=== PATIENT | female | born 1945 | race Caucasian/White ===

== ENCOUNTER → 2018-02-14 05:32 | Outpatient (REF) | payer OTHER, SELFPAY ==
[2018-02-14 09:22] LABS: Microscopic, Urine URINE MICROSCOPIC (MICROSCOPIC)
[2018-02-14 09:47] LABS: Appearance,Urine CLOUDY (Clear); Bilirubin,Urine Negative (Negative); Blood, Urine 3+ (Negative); Color,Urine YELLOW (Yellow); Glucose,Urine (UA) Negative (Negative); Ketones,Urine Negative (Negative); Leukocyte Esterase,Urine 3+ (Negative); Nitrate,Urine POSITIVE (Negative); PH,Urine 6.5 (5.0-8.5); Protein,Urine 2+ (Negative); Specific Gravity, Urine 1.025 (1.005-1.030); Urobilinogen,Urine 0.2 EU/dl (0.2)
[2018-02-14 11:01] LABS: Bacteria,Urine 4+ /lpf; Squamous Epithelial Cell,Urine Occasional #/hpf (0-5); WBC,Urine TNTC #/hpf (0-3)
== END ==
LOC: LAB 05:32
PROVIDERS: Visit Provider Internal Medicine
DX: R10.2 Pelvic and perineal pain (principal); R36.9 Urethral discharge, unspecified
CPT/HCPCS: 81001; 87086; 87088; 87186

== ENCOUNTER → 2018-06-09 14:42 | Outpatient (CLI) | payer MEDICARE, MEDICAID, SELFPAY ==
--- NOTE | 2018-06-09 14:47 | CT_ITS ---
CT abdomen pelvis wo con CLINICAL INDICATION: ITS.REASON: CHRONIC CYSTITIS ORDERING PHYSICIAN: Nasir Valdez MD PATIENT AGE: 72 years COMPARISON: None TECHNIQUE: Axial images obtained with sagittal and coronal reformats. All CT scans at the facility use one or more dose reduction, viz: automated exposure control; ma/kV adjustment per patient size (including targeted exams where dose is matched to indication; i.e. head); or iterative reconstruction technique. PROCEDURE: Oral Contrast: None IV Contrast: None . FINDINGS: There are mild fibrotic changes in the lingula. There has been prior cholecystectomy. No obvious ductal dilatation. No focal liver lesion. The spleen, adrenal glands, and pancreas have an unremarkable unenhanced CT appearance. There is an 11 x 8 mm stone in the lower pole the right kidney. A 3 mm stone is present in the upper pole of the left kidney. There are 2 calcific densities in the left renal pelvis and may represent small stones at 3 mm each versus vascular calcification. No ureteral calculi. No hydronephrosis. There is mild ectasia of the infrarenal abdominal aorta measuring up to 2.5 cm in transverse dimension. There is a suprapubic catheter present. Several coarse calcific densities are present around the urinary bladder and there may be a small stone in the lower right aspect the urinary bladder at 7 mm. There are multiple unopacified bowel loops present within the abdomen/pelvis which could obscure or mimic pathology. If symptoms persists, consider repeating exam with IV and oral contrast administration. No acute bony anomalies. There is mild stranding in the subcutaneous fat nonspecific IMPRESSION: 1. Bilateral nephrolithiasis. No hydronephrosis or hydroureters. 2. Suprapubic catheter present with possible small stone in the right aspect of the urinary bladder with multiple phleboliths around the urinary bladder. 3. Constipation. 4. There are multiple unopacified bowel loops present within the abdomen/pelvis which could obscure or mimic pathology. If symptoms persists, consider repeating exam with IV and oral contrast administration 5. Mild dilatation of the infrarenal abdominal aorta at 2.7 cm
== END ==
PROVIDERS: PCP Emergency Medicine; Visit Provider Urology
DX: N30.10 Interstitial cystitis (chronic) without hematuria (principal)
CPT/HCPCS: 74176

== ENCOUNTER → 2018-08-11 18:45 | Outpatient (REF) | payer MEDICARE, MEDICAID, SELFPAY | LOC: LAB 18:45 | PROVIDERS: Visit Provider Urology | DX: N30.20 Other chronic cystitis without hematuria (principal); N31.9 Neuromuscular dysfunction of bladder, unspecified | CPT/HCPCS: 87086; 87088; 87186 ==

== ENCOUNTER → 2018-09-23 10:05 | Outpatient (CLI) | payer MEDICARE, MEDICAID, SELFPAY | PROVIDERS: PCP Emergency Medicine; Visit Provider Urology | DX: N39.0 Urinary tract infection, site not specified (principal) | CPT/HCPCS: 87086; 87088; 87186 ==

== ENCOUNTER 2018-10-26 09:30 | Inpatient (IN) ==
--- NOTE | 2018-10-26 09:56 | Emergency Department Note ---
ED Disposition Clinical Impression: Hyperglycemia, Renal insufficiency Fever Qualifiers: Fever type: due to other condition Qualified Code(s): R50.81 - Fever presenting with conditions classified elsewhere UTI (urinary tract infection) Qualifiers: Urinary tract infection type: site unspecified Hematuria presence: without hematuria Qualified Code(s): N39.0 - Urinary tract infection, site not specified Disposition: Admitted as Observation Condition on Discharge: Fair Instructions: DI for Fever (Symptom) -- Adult Additional Instructions: DI for UTI DI for Hyperglycemia DI for renal insufficiency Referrals: Reza Rojas MD [Primary Care Provider] - Time of Disposition: 10:47 (admit) - Critical Care Critical Care Time: No Attestation: On , the high probability of a clinically significant, sudden or life threatening deterioration of the following system(s) required my full and direct attention, intervention and personal management. The time I documented below is in addition to time spent performing reported procedures but includes the following listed in this critical care notation. Medical Decision Making - Medical Records Medical records reviewed: Yes: I reviewed the patient's medical records. - Abelardo Inquiry Pt receiving controlled substance: No Abelardo was queried for this patient: No Vital Signs: 10/26/18 09:35 10/26/18 10:07 10/26/18 10:38 Temperature 102.1 F H 100.9 F H Temperature Source Temporal Artery Scan Temporal Artery Scan Pulse Rate [Right Brachial] 87 129 H Respiratory Rate 20 Blood Pressure [Right Arm] 123/64 106/68 L Blood Pressure Mean [Right Arm] 83 80 Blood Pressure Source [Right Arm] Automatic Cuff Automatic Cuff Blood Pressure Position [Right Arm] Sitting Sitting 02 Sat by Pulse Oximetry 90 L 94 L Oxygen Delivery Method Room Air Non-Rebreather Oxygen Flow Rate (LPM) 15 - Lab Data Lab results reviewed: Yes: I reviewed the patient's lab results. Lab Results 10/26/18 09:50: Urine Color Brown, Urine Appearance Turbid, Urine pH 6.5, Ur Specific [place] 1.025, Urine Protein 2+, Urine Glucose (UA) Negative, Urine Ketones Trace, Urine Blood 3+, Urine Nitrate Positive, Urine Bilirubin Negative, Urine Urobilinogen 1.0, Ur Leukocyte Esterase 2+ A, Urine RBC Tntc, Urine WBC Tntc, Ur Squamous Epith Cells 5-10, Urine Bacteria 4+ 10/26/18 09:50: WBC 10.3, RBC 4.14 L, Hgb 11.2 L, Hct 35.4 L, MCV 85.6, MCH 27.0, MCHC 31.5 L, RDW 15.5, Plt Count 157, MPV 6.9 L, Neut % (Auto) 89.2 H, Lymph % (Auto) 6.2 L, [place] % (Auto) 4.2, Eos % (Auto) 0.2, Baso % (Auto) 0.3, Neut # (Auto) 9.2 H, Lymph # (Auto) 0.6 L, [place] # (Auto) 0.4, Eos # (Auto) 0.0, Baso # (Auto) 0.0, Total Counted 100, Neutrophils % (Manual) 90 H, Band Neutrophils % 1.0, Lymphocytes % (Manual) 6 L, Monocytes % (Manual) 3, Platelet Estimate Normal, Hypochromasia 1+ 10/26/18 09:50: Sodium 138, Potassium 3.9, Chloride 103, Carbon Dioxide 24, Anion Gap 14.9, BUN 26 H, Creatinine 1.16 H, Estimated Creat Clear 56, Estimated GFR 46 L, Est GFR ( Amer) 55 L, Glucose 125 H, Calcium 8.6, Troponin I < 0.02 10/26/18 09:50: Lactate 1.7 10/26/18 10:00: Influenza Type A Ag Negative, Influenza Type B Ag Negative Result diagrams: 10/26/18 09:50 10/26/18 09:50 Orders (Tests/Meds): ED MEDICATIONS Generic Name Dose Route Start Last Admin Trade Name Freq PRN Reason Stop Dose Admin Levofloxacin/Dextrose 500 mg in 100 mls @ 100 mls/hr 10/26/18 10:39 Levaquin 500mg/100ml Premix IV 10/26/18 11:38 PREOP ONE Protocol Discontinued Medications Generic Name Dose Route Start Last Admin Trade Name Freq PRN Reason Stop Dose Admin Acetaminophen 650 mg 10/26/18 09:46 10/26/18 10:10 Tylenol Elixir 325mg/10.15ml Udc PO 10/26/18 09:47 650 mg ONCE ONE Administration Sodium Chloride 1,000 mls @ 999 mls/hr 10/26/18 09:45 10/26/18 10:10 Sod Chlor 0.9% 1000ml Bag IV 10/26/18 10:45 999 mls/hr .Q1H1M NEELIMA Administration ORDERS Category Date Time Status Urinalysis and Microscopic Stat Lab 10/26/18 09:50 Ordered Blood Culture Stat Micro 10/26/18 09:50 Ordered Urine Culture Stat Micro 10/26/18 09:50 Received 12-lead EKG Request [ECG Request by /Vilma] Stat Y 10/26/18 09:47 Ordered - Radiology Data #1 Image(s): Chest Image Reviewed: Yes I reviewed the patient's radiology results, Yes I have reviewed radiologist's interpretation Preliminary Findings: Normal/NAD - ECG Data Tracing #1 I reviewed this ECG and interpreted as documented below: NSR,arrythmia,PVCs,Non spescific STT changes Normal Sinus Rhythm: Yes Ischemic changes: non-specific ST-T wave changes ECG compared to prior tracings: there are no prior tracings available for comparison Fever HPI - General Chief Complaint: Fever Stated Complaint: FEVER Time Seen by Provider: 10/26/18 09:53 Mode of Arrival: EMS Source of Information: EMS Limitations: No Limitations Description of Symptoms (Recalled from ER Triage Doc. by RN): C/O FEVER, ALTERED MENTAL STATUS AND HYPOXIA - History of Present Illness MD complaint: fever, malaise Onset (ago): day(s) (today at detention) Temperature Source: oral Associated symptoms: denies other symptoms, other (recent recent UTI) Relieving factors: acetaminophen Exacerbating factors: nothing Treatments prior to arrival fever: acetaminophen - Related Data Home Medications Medication Instructions Recorded Confirmed acetaminophen 500 mg tablet 500 mg PO Q6H PRN 05/12/18 10/26/18 aluminum hydrox-magnesium carb 95 30 ml PO TID PRN ml 05/12/18 10/26/18 mg-358 mg/15 mL oral suspension atorvastatin 40 mg tablet 40 mg PO QHS tab 05/12/18 10/26/18 bisacodyl 10 mg rectal suppository 10 mg MS DAILY PRN each 05/12/18 10/26/18 docusate sodium 250 mg capsule 250 mg PO DAILY PRN cap 05/12/18 10/26/18 hydrocodone 7.5 mg-acetaminophen 1 tab PO Q4H PRN 05/12/18 10/26/18 325 mg tablet ipratropium-albuterol 0.5 mg-3 3 ml INHALATION Q4H PRN ml 05/12/18 10/26/18 mg(2.5 mg base)/3 mL nebulization soln lactulose 10 gram/15 mL oral 20 g PO DAILY PRN ml 05/12/18 10/26/18 solution multivitamin with minerals capsule 1 cap PO DAILY cap 05/12/18 10/26/18 rivaroxaban 20 mg tablet 20 mg PO DAILY tab 05/12/18 10/26/18 mirtazapine 30 mg tablet 15 mg PO QHS tab 06/15/18 10/26/18 Ascorbic Acid [Vitamin C] 1,000 mg PO DAILY 10/26/18 10/26/18 Cranberry 400 mg PO DAILY 10/26/18 10/26/18 Ondansetron [Zofran 4mg ODT] 4 mg PO Q4HP PRN 10/26/18 10/26/18 Propylene Glycol [Systane Complete] 1 drop OU TID 10/26/18 10/26/18 Allergies Allergy/AdvReac Type Severity Reaction Status Date / Time Sulfa (Sulfonamide Allergy Unknown Verified 09/22/18 13:02 Antibiotics) [facility] History I have reviewed the patient's past medical history: Yes Medical History: Reports:: Congestive Heart Failure, Depression, Hyperlipidemia, Peripheral Vascular Disease Comment: Lymphedema Other Surgeries: Yes: Cholecystectomy - Social History Smoking Status: Unknown if ever smoked Alcohol Intake: never - Psychiatric History Expresses thoughts of harming self/others: None Suicide Plan Description: No Plan Pschychiatric History:: Reports:: Depression Family Hx:: Coronary Artery Disease, Cancer ROS Obtained: Yes All systems reviewed & no additional complaints - Constitutional Constitutional: Reports system reviewed and no additional complaints, except as docu, Denies chills, Reports fever(s) - ENT Ears, Nose, Mouth, and Throat: Reports system reviewed and no additional complaints, except as docu, Denies epistaxis, Denies facial pain, Denies nasal congestion, Denies sore throat - Cardiovascular Cardiovascular: Reports system reviewed and no additional complaints, except as docu, Denies chest pain, Denies dyspnea - Respiratory Respiratory: Yes system reviewed and no additional complaints, except as docu, No cough, No dyspnea - Gastrointestinal Gastrointestingal: Reports: system reviewed and no additional complaints, except as docu. Denies: abdominal pain, constipation, diarrhea, nausea, vomiting - Genitourinary Male Genitourinary: Reports system reviewed and no additional complaints, except as docu, Denies urinary frequency, Denies urinary hesitancy, Denies urinary urgency - Integumentary/Breasts Skin/Breast: Reports system reviewed and no additional complaints, except as docu, Denies change in skin color, Denies redness, Denies boil, Denies unusual bruising, Denies wounds - Neurologic Neurologic: Reports system reviewed and no additional complaints, except as docu, Denies confusion, Denies dizziness, Denies headache(s) Physical Exam - General General appearance: alert, in no apparent distress - Head Head exam: atraumatic, normocephalic, normal inspection - ENT ENT exam: Present: normal exam, normal oropharynx, mucous membranes moist, normal external ear exam - Neck Neck exam: Present: normal inspection, full ROM, trachea midline. Absent: meningismus, lymphadenopathy - Chest Chest inspection: Present: normal inspection, symmetric chest wall rise. Absent: tenderness - Respiratory Respiratory exam: Present: normal lung sounds bilaterally. Absent: respiratory distress - Cardiovascular Cardiovascular exam: Present: regular rate, normal rhythm. Absent: JVD - Abdominal Exam Abdominal exam: Present: soft, normal bowel sounds. Absent: distention, tenderness, guarding - Extremities Exam Extremities exam: Present: normal inspection, full ROM, normal capillary refill. Absent: calf tenderness - Back Exam Back exam: Present: normal inspection. Absent: tenderness - Neurological Exam Neurological exam: Present: alert, oriented X3 - Psychiatric Psychiatric exam: Present: normal affect, normal mood - Skin Skin exam: Present: warm, dry, intact, normal color - Lymphatic Lymphatic Findings: no adenopathy
[2018-10-26 10:03] LABS: Microscopic, Urine URINE MICROSCOPIC (MICROSCOPIC)
[2018-10-26 10:06] LABS: Appearance,Urine TURBID (Clear); Blood, Urine 3+ (Negative); Color,Urine BROWN (Yellow); Glucose,Urine (UA) Negative (Negative); Ketones,Urine TRACE (Negative); Leukocyte Esterase,Urine 2+ (Negative); PH,Urine 6.5 (5.0-8.5); Protein,Urine 2+ (Negative); Specific Gravity, Urine 1.025 (1.005-1.030)
[2018-10-26 10:07] LABS: Bilirubin,Urine Negative (Negative)
[2018-10-26 10:08] LABS: Basophils % 0.3 % (0.1-2.0); Eosinophils % 0.2 % (0.1-12.0); Hematocrit 35.4 % (37.0-47.0); Hemoglobin 11.2 g/dL (12.2-16.2); Lymphocytes # 0.6 K/mm3 (0.7-4.5); Lymphocytes % 6.2 % (10-50); Mean Corpuscular HGB Conc 31.5 g/dL (31.8-35.4); Mean Corpuscular Volume 85.6 fl (81-99); Mean Platelet Volume 6.9 fl (7.4-10.4); Monocytes # 0.4 K/mm3 (0.1-1.0); Monocytes % 4.2 % (1.7-9.3); Neutrophils # 9.2 K/mm3 (1.8-7.8); Neutrophils % 89.2 % (37.0-80.0); Platelet Count 157 K/mm3 (142-424); Red Blood Count 4.14 M/mm3 (4.20-5.40); Red Cell Distribution Width 15.5 % (11.5-17.5); White Blood Count 10.3 K/mm3 (4.8-10.8)
[2018-10-26 10:21] LABS: Bacteria,Urine 4+ /lpf; RBC,Urine TNTC #/hpf (0-3); WBC,Urine TNTC #/hpf (0-3)
[2018-10-26 10:26] LABS: Anion Gap 14.9 mEq/L (5-15); Blood Urea Nitrogen 26 mg/dL (7-18); Calcium 8.6 mg/dL (8.5-10.1); Carbon Dioxide 24 mmol/L (21.0-32.0); Chloride 103 mmol/L (98-107); Glucose 125 mg/dL (74-106); Potassium 3.9 mmoL/L (3.5-5.1); Sodium 138 mmol/L (136-145)
[2018-10-26 10:33] LABS: Hypochromasia 1+; Lymphocytes % 6 % (10-50); Monocytes % 3 % (2-9); Neutrophils % 90 % (42-76); Total Cells Counted 100
--- NOTE | 2018-10-26 15:20 | Pharmacy Consult Notes ---
[facility] Pharmacy VTE Monitoring - Patient Demographics Admission date: 10/26/18 Report Date: 10/26/18 Time: 15:20 Allergies/Adverse Reactions: Patient Allergies Sulfa (Sulfonamide Antibiotics) Allergy (Unknown, Verified 09/22/18 13:02) Height: 1.65 m Weight: 89.471 kg Patient Problems: Current Active Problems Fever (Acute) UTI (urinary tract infection) (Acute) Hyperglycemia (Acute) Renal insufficiency (Acute) - VTE Risk Labs: VTE Related Lab Results Hgb 11.2 g/dL (12.2-16.2) L 10/26/18 09:50 Hct 35.4 % (37.0-47.0) L 10/26/18 09:50 Plt Count 157 K/mm3 (142-424) 10/26/18 09:50 BUN 26 mg/dL (7-18) H 10/26/18 09:50 Creatinine 1.16 mg/dL (0.55-1.02) H 10/26/18 09:50 Estimated Creat Clear 56 mL/min (50-200) 10/26/18 09:50 Was VTE Risk Assessment Performed: Yes VTE Score: 5 VTE Risk Level: Low Risk Clinical Trial Participant: No - Prophylaxis VTE Prophylaxis Ordered?: Yes Types of VTE Prophylaxis: TEDS Knee High Location of Applied Device: Refused
--- NOTE | 2018-10-26 20:23 | History & Physical Report ---
*Admission Date: 10/26/18 *Chief complaint: fever *History of present illness: this elderly wf was seen in the ed -O FEVER, ALTERED MENTAL STATUS AND HYPOXIA pt was at [facility] and had dec loc and had recent uti - e coli - no vomiting - pt with not feeling well [facility] History I have reviewed the patient's past medical history: Yes Medical History: Reports:: Congestive Heart Failure, Depression, Hyperlipidemia, Peripheral Vascular Disease Other Surgeries: Yes: Cholecystectomy - *Social History Smoking Status: Unknown if ever smoked Alcohol Intake: never Occupational Status: disabled Housing: prison Household Members: other - Psychiatric History Expresses thoughts of harming self/others: None Suicide Plan Description: No Plan Pschychiatric History:: Reports:: Depression *Family Hx:: Coronary Artery Disease, Cancer Review of Systems - Review of Systems Review of systems:: pertinent systems reviewed and negative unless documented below - Constitutional Denies fever(s) - Eyes Denies change in vision - ENT Denies sore throat - *Cardiovascular Denies chest pain - *Respiratory Denies cough - *Gastrointestinal Denies nausea, Denies vomiting - *Genitourinary Denies blood in urine - *Musculoskeletal Denies joint pain, Denies neck pain - Integumentary/Breasts Denies rash - *Neurologic Denies confusion, Denies dizziness, Denies headache(s) - Psychiatric Denies anxiety Meds Home Medications Medication Instructions Recorded Confirmed Type acetaminophen 500 mg tablet 500 mg PO Q6H PRN 05/12/18 10/26/18 History aluminum hydrox-magnesium carb 95 30 ml PO TID PRN ml 05/12/18 10/26/18 History mg-358 mg/15 mL oral suspension atorvastatin 40 mg tablet 40 mg PO HS tab 05/12/18 10/26/18 History bisacodyl 10 mg rectal suppository 10 mg ID DAILY PRN each 05/12/18 10/26/18 History hydrocodone 7.5 mg-acetaminophen 1 tab PO Q4H 05/12/18 10/26/18 History 325 mg tablet lactulose 10 gram/15 mL oral 20 g PO DAILY PRN ml 05/12/18 10/26/18 History solution multivitamin with minerals capsule 1 cap PO DAILY cap 05/12/18 10/26/18 History rivaroxaban 20 mg tablet 20 mg PO 1700 tab 05/12/18 10/26/18 History mirtazapine 30 mg tablet 15 mg PO HS tab 06/15/18 10/26/18 History Ascorbic Acid [Vitamin C] 1,000 mg PO DAILY 10/26/18 10/26/18 History Cranberry 400 mg PO DAILY 10/26/18 10/26/18 History Ipratropium/Albuterol Sulfate 3 ml IH Q4HP PRN 10/26/18 10/26/18 History [Duoneb 3mL neb] Ondansetron [Zofran 4mg ODT] 4 mg PO Q4HP PRN 10/26/18 10/26/18 History Propylene Glycol [Systane Complete] 1 drop OU TID 10/26/18 10/26/18 History Sennosides/Docusate Sodium 2 each PO BID 10/26/18 10/26/18 History [Senna-Docusate Sodium Tablet] Allergies Allergy/AdvReac Type Severity Reaction Status Date / Time Sulfa (Sulfonamide Allergy Unknown Verified 09/22/18 13:02 Antibiotics) Exam Vital signs and Labs for Last 24 Hours: Temp Pulse Resp BP Pulse Ox 99.4 F 98 H 20 158/75 H 93 L 10/26/18 20:00 10/26/18 20:00 10/26/18 20:00 10/26/18 20:00 10/26/18 20:00 Laboratory Results - last 24 hr 10/26/18 09:50: Urine Color Brown, Urine Appearance Turbid, Urine pH 6.5, Ur Specific [place] 1.025, Urine Protein 2+, Urine Glucose (UA) Negative, Urine Ketones Trace, Urine Blood 3+, Urine Nitrate Positive, Urine Bilirubin Negative, Urine Urobilinogen 1.0, Ur Leukocyte Esterase 2+ A, Urine RBC Tntc, Urine WBC Tntc, Ur Squamous Epith Cells 5-10, Urine Bacteria 4+ 10/26/18 09:50: WBC 10.3, RBC 4.14 L, Hgb 11.2 L, Hct 35.4 L, MCV 85.6, MCH 27.0, MCHC 31.5 L, RDW 15.5, Plt Count 157, MPV 6.9 L, Neut % (Auto) 89.2 H, Lymph % (Auto) 6.2 L, [place] % (Auto) 4.2, Eos % (Auto) 0.2, Baso % (Auto) 0.3, Neut # (Auto) 9.2 H, Lymph # (Auto) 0.6 L, [place] # (Auto) 0.4, Eos # (Auto) 0.0, Baso # (Auto) 0.0, Total Counted 100, Neutrophils % (Manual) 90 H, Band Neutrophils % 1.0, Lymphocytes % (Manual) 6 L, Monocytes % (Manual) 3, Platelet Estimate Normal, Hypochromasia 1+ 10/26/18 09:50: Sodium 138, Potassium 3.9, Chloride 103, Carbon Dioxide 24, Anion Gap 14.9, BUN 26 H, Creatinine 1.16 H, Estimated Creat Clear 56, Estimated GFR 46 L, Est GFR ( Amer) 55 L, Glucose 125 H, Calcium 8.6, Troponin I < 0.02 10/26/18 09:50: Lactate 1.7 10/26/18 10:00: Influenza Type A Ag Negative, Influenza Type B Ag Negative I & O for Last 24 hours: Intake & Output 10/24/18 10/25/18 10/26/18 10/27/18 11:59 11:59 11:59 11:59 Intake Total 120 / 120 Output Total 350 / 350 Balance -230 / -230 Weight 197 lb 4 oz 197 lb 4 oz - Constitutional no acute distress, obese - *Routine HEENT Exam Head: Present: normocephalic Eye: Present: EOMI, PERRL ENT: Present: mucous membranes dry - *Routine Neck Exam Present: supple - *Routine Respiratory Exam Present: decreased breath sounds - *Routine Cardiovascular Exam Present: RRR, murmur - *Routine Abdominal Exam Present: soft - *Routine Extremities Exam Absent: tenderness - *Routine Skin Exam Present: intact - *Routine Neurological Exam Present: CN II-XII intact. Absent: motor deficit - Routine Psychiatric Exam Present: unable to assess Assessment and Plan (1) UTI (urinary tract infection) Current visit: Yes Status: Acute Qualifiers: Urinary tract infection type: site unspecified Hematuria presence: without hematuria Qualified Code(s): N39.0 - Urinary tract infection, site not specified Category: Medical Code(s): N39.0 - Urinary tract infection, site not specified (2) Renal insufficiency Current visit: Yes Status: Acute Category: Medical Code(s): N28.9 - Disorder of kidney and ureter, unspecified
[2018-10-27 09:10] LABS: Basophils % 0.3 % (0.1-2.0); Eosinophils % 0.2 % (0.1-12.0); Hematocrit 33.1 % (37.0-47.0); Hemoglobin 10.5 g/dL (12.2-16.2); Lymphocytes # 0.9 K/mm3 (0.7-4.5); Lymphocytes % 10.3 % (10-50); Mean Corpuscular HGB Conc 31.6 g/dL (31.8-35.4); Mean Corpuscular Hemoglobin 27.3 pg (27.0-31.2); Mean Corpuscular Volume 86.4 fl (81-99); Mean Platelet Volume 7.6 fl (7.4-10.4); Monocytes # 0.5 K/mm3 (0.1-1.0); Monocytes % 5.4 % (1.7-9.3); Neutrophils # 7.3 K/mm3 (1.8-7.8); Neutrophils % 83.8 % (37.0-80.0); Platelet Count 135 K/mm3 (142-424); Red Blood Count 3.83 M/mm3 (4.20-5.40); Red Cell Distribution Width 15.7 % (11.5-17.5); White Blood Count 8.7 K/mm3 (4.8-10.8)
[2018-10-27 09:20] LABS: Albumin Level 2.3 gm/dL (3.4-5.0); Albumin/Globulin Ratio 0.5 (1.1-1.8); Anion Gap 15.4 mEq/L (5-15); Bilirubin,Total 0.4 mg/dL (0.2-1.0); Calcium 8.5 mg/dL (8.5-10.1); Globulin 4.5 gm/dl (1.3-3.2); Potassium 3.4 mmoL/L (3.5-5.1); Total Protein,Serum 6.8 gm/dL (6.4-8.2)
--- NOTE | 2018-10-27 09:29 | Progress Note ---
Internal Medicine - PN: Subj *Date: 10/27/18 *Time: Exam Vital signs and Labs for Last 24 Hours: Temp Pulse Resp BP Pulse Ox 97.0 F L 98 H 18 91/44 L 96 10/27/18 08:00 10/27/18 08:00 10/27/18 08:00 10/27/18 08:00 10/27/18 08:00 Laboratory Results - last 24 hr 10/26/18 09:50: Urine Color Brown, Urine Appearance Turbid, Urine pH 6.5, Ur Specific [place] 1.025, Urine Protein 2+, Urine Glucose (UA) Negative, Urine Ketones Trace, Urine Blood 3+, Urine Nitrate Positive, Urine Bilirubin Negative, Urine Urobilinogen 1.0, Ur Leukocyte Esterase 2+ A, Urine RBC Tntc, Urine WBC Tntc, Ur Squamous Epith Cells 5-10, Urine Bacteria 4+ 10/26/18 09:50: WBC 10.3, RBC 4.14 L, Hgb 11.2 L, Hct 35.4 L, MCV 85.6, MCH 27.0, MCHC 31.5 L, RDW 15.5, Plt Count 157, MPV 6.9 L, Neut % (Auto) 89.2 H, Lymph % (Auto) 6.2 L, [place] % (Auto) 4.2, Eos % (Auto) 0.2, Baso % (Auto) 0.3, Neut # (Auto) 9.2 H, Lymph # (Auto) 0.6 L, [place] # (Auto) 0.4, Eos # (Auto) 0.0, Baso # (Auto) 0.0, Total Counted 100, Neutrophils % (Manual) 90 H, Band Neutrophils % 1.0, Lymphocytes % (Manual) 6 L, Monocytes % (Manual) 3, Platelet Estimate Normal, Hypochromasia 1+ 10/26/18 09:50: Sodium 138, Potassium 3.9, Chloride 103, Carbon Dioxide 24, Anion Gap 14.9, BUN 26 H, Creatinine 1.16 H, Estimated Creat Clear 56, Estimated GFR 46 L, Est GFR ( Amer) 55 L, Glucose 125 H, Calcium 8.6, Troponin I < 0.02 10/26/18 09:50: Lactate 1.7 10/26/18 10:00: Influenza Type A Ag Negative, Influenza Type B Ag Negative 10/27/18 09:07: WBC 8.7, RBC 3.83 L, Hgb 10.5 L, Hct 33.1 L, MCV 86.4, MCH 27.3, MCHC 31.6 L, RDW 15.7, Plt Count 135 L, MPV 7.6, Neut % (Auto) 83.8 H, Lymph % (Auto) 10.3, [place] % (Auto) 5.4, Eos % (Auto) 0.2, Baso % (Auto) 0.3, Neut # (Auto) 7.3, Lymph # (Auto) 0.9, [place] # (Auto) 0.5, Eos # (Auto) 0.0, Baso # (Auto) 0.0 10/27/18 09:07: Sodium 140, Potassium 3.4 L, Chloride 105, Carbon Dioxide 23, Anion Gap 15.4 H, BUN 31 H, Creatinine 1.35 H, Estimated Creat Clear 52, Estimated GFR 38 L, Est GFR ( Amer) 47 L, Glucose 131 H, Calcium 8.5, Total Bilirubin 0.4, AST 33, ALT 12, Alkaline Phosphatase 79, Total Protein 6.8, Albumin 2.3 L, Globulin 4.5 H, Albumin/Globulin Ratio 0.5 L I & O for Last 24 hours: Intake & Output 10/24/18 10/25/18 10/26/18 10/27/18 11:59 11:59 11:59 11:59 Intake Total 240 / 240 Output Total 800 / 800 Balance -560 / -560 Weight 197 lb 4 oz 197 lb 4 oz Microbiology Reports for the Last 24 Hours: Microbiology 10/26/18 09:50 Blood Blood Culture - Preliminary 10/26/18 09:50 Blood Blood Culture - Preliminary 10/26/18 09:50 Urine,Clean Catch Urine Culture - Preliminary Gram Negative Rods - *Routine HEENT Exam Head: Present: normocephalic Eye: Present: EOMI, PERRL ENT: Present: mucous membranes moist - *Routine Neck Exam Present: supple. Absent: lymphadenopathy - *Routine Respiratory Exam Present: CTA bilaterally - *Routine Cardiovascular Exam Present: RRR - *Routine Abdominal Exam Present: soft, normoactive bowel sounds. Absent: tenderness Comments: Suprapubic cath in place - *Routine Extremities Exam Absent: cyanosis, clubbing, edema - *Routine Skin Exam Present: warm. Absent: rash - *Routine Neurological Exam Present: alert, oriented X3 Assessment and Plan (1) UTI (urinary tract infection) Current visit: Yes Status: Acute Qualifiers: Urinary tract infection type: site unspecified Hematuria presence: without hematuria Qualified Code(s): N39.0 - Urinary tract infection, site not spe cified Category: Medical Code(s): N39.0 - Urinary tract infection, site not specified (2) Renal insufficiency Current visit: Yes Status: Acute Category: Medical Code(s): N28.9 - Disorder of kidney and ureter, unspecified - Assessment and plan all Dx Assessment and Plan for all problems:: Rounded with Dr. Rojas all orders per Bob Change antibiotics and vancomycin for positive blood-Staphylococcus arues and gram-negative in urine cultures PICC line placement Start IV fluids
--- NOTE | 2018-10-27 10:56 | Pharmacy Consult Notes ---
- Pharmacy Consult Date: 10/27/18 Time: 10:55 Referring provider: DR. VERNON Reason for Consult:: VANCOMYCIN DOSING Allergies and ADEs:: Allergies Allergy/AdvReac Type Severity Reaction Status Date / Time Sulfa (Sulfonamide Allergy Unknown Verified 09/22/18 13:02 Antibiotics) Home Medications:: Home Medications Medication Instructions Recorded Confirmed Type acetaminophen 500 mg tablet 500 mg PO Q6H PRN 05/12/18 10/26/18 History aluminum hydrox-magnesium carb 95 30 ml PO TID PRN ml 05/12/18 10/26/18 History mg-358 mg/15 mL oral suspension atorvastatin 40 mg tablet 40 mg PO HS tab 05/12/18 10/26/18 History bisacodyl 10 mg rectal suppository 10 mg [place] DAILY PRN each 05/12/18 10/26/18 History hydrocodone 7.5 mg-acetaminophen 1 tab PO Q4H 05/12/18 10/26/18 History 325 mg tablet lactulose 10 gram/15 mL oral 20 g PO DAILY PRN ml 05/12/18 10/26/18 History solution multivitamin with minerals capsule 1 cap PO DAILY cap 05/12/18 10/26/18 History rivaroxaban 20 mg tablet 20 mg PO 1700 tab 05/12/18 10/26/18 History mirtazapine 30 mg tablet 15 mg PO HS tab 06/15/18 10/26/18 History Ascorbic Acid [Vitamin C] 1,000 mg PO DAILY 10/26/18 10/26/18 History Cranberry 400 mg PO DAILY 10/26/18 10/26/18 History Ipratropium/Albuterol Sulfate 3 ml IH Q4HP PRN 10/26/18 10/26/18 History [Duoneb 3mL neb] Ondansetron [Zofran 4mg ODT] 4 mg PO Q4HP PRN 10/26/18 10/26/18 History Propylene Glycol [Systane Complete] 1 drop OU TID 10/26/18 10/26/18 History Sennosides/Docusate Sodium 2 each PO BID 10/26/18 10/26/18 History [Senna-Docusate Sodium Tablet] Height: 1.65 m Weight: 89.471 kg Laboratory Results:: Laboratory Results - last 24 hr 10/26/18 09:50: Urine Color Brown, Urine Appearance Turbid, Urine pH 6.5, Ur Specific [place] 1.025, Urine Protein 2+, Urine Glucose (UA) Negative, Urine Ketones Trace, Urine Blood 3+, Urine Nitrate Positive, Urine Bilirubin Negative, Urine Urobilinogen 1.0, Ur Leukocyte Esterase 2+ A, Urine RBC Tntc, Urine WBC Tntc, Ur Squamous Epith Cells 5-10, Urine Bacteria 4+ 10/27/18 09:07: WBC 8.7, RBC 3.83 L, Hgb 10.5 L, Hct 33.1 L, MCV 86.4, MCH 27.3, MCHC 31.6 L, RDW 15.7, Plt Count 135 L, MPV 7.6, Neut % (Auto) 83.8 H, Lymph % (Auto) 10.3, [place] % (Auto) 5.4, Eos % (Auto) 0.2, Baso % (Auto) 0.3, Neut # (Auto) 7.3, Lymph # (Auto) 0.9, [place] # (Auto) 0.5, Eos # (Auto) 0.0, Baso # (Auto) 0.0 10/27/18 09:07: Sodium 140, Potassium 3.4 L, Chloride 105, Carbon Dioxide 23, Anion Gap 15.4 H, BUN 31 H, Creatinine 1.35 H, Estimated Creat Clear 52, Estimated GFR 38 L, Est GFR ( Amer) 47 L, Glucose 131 H, Calcium 8.5, Total Bilirubin 0.4, AST 33, ALT 12, Alkaline Phosphatase 79, Total Protein 6.8, Albumin 2.3 L, Globulin 4.5 H, Albumin/Globulin Ratio 0.5 L Medical History: Reports:: Congestive Heart Failure, Depression, Hyperlipidemia, Peripheral Vascular Disease Assessment and Plan (1) UTI (urinary tract infection) Current visit: Yes Status: Acute Qualifiers: Urinary tract infection type: site unspecified Hematuria presence: without hematuria Qualified Code(s): N39.0 - Urinary tract infection, site not specified Category: Medical Code(s): N39.0 - Urinary tract infection, site not specified (2) Renal insufficiency Current visit: Yes Status: Acute Category: Medical Code(s): N28.9 - Disorder of kidney and ureter, unspecified - Assessment and plan all Dx Assessment and Plan for all problems:: BASED ON PATIENT FACTORS AND POSITIVE BLOOD CULTURE FOR STAPH AUREUS, RECOMMEND VANCOMYCIN 1,250MG IV EVERY 24 HOURS. PHARMACY WILL MONITOR AND ADJUST DOSE DOSE APPROPRIATE. -KEILA SANTOSD
[2018-10-28 06:06] LABS: Basophils % 0.3 % (0.1-2.0); Eosinophils % 0.3 % (0.1-12.0); Hematocrit 31.5 % (37.0-47.0); Lymphocytes # 1.3 K/mm3 (0.7-4.5); Lymphocytes % 15.9 % (10-50); Mean Corpuscular HGB Conc 31.7 g/dL (31.8-35.4); Mean Corpuscular Hemoglobin 27.2 pg (27.0-31.2); Mean Corpuscular Volume 85.7 fl (81-99); Mean Platelet Volume 8.4 fl (7.4-10.4); Monocytes # 0.9 K/mm3 (0.1-1.0); Monocytes % 10.4 % (1.7-9.3); Neutrophils # 5.9 K/mm3 (1.8-7.8); Neutrophils % 72.9 % (37.0-80.0); Platelet Count 112 K/mm3 (142-424); Red Blood Count 3.68 M/mm3 (4.20-5.40); Red Cell Distribution Width 15.5 % (11.5-17.5); White Blood Count 8.1 K/mm3 (4.8-10.8)
[2018-10-28 06:23] LABS: Anion Gap 14.1 mEq/L (5-15); Calcium 8.2 mg/dL (8.5-10.1); Potassium 3.1 mmoL/L (3.5-5.1)
--- NOTE | 2018-10-28 08:59 | Progress Note ---
Internal Medicine - PN: Subj *Date: 10/28/18 *Time: 08:00 Interval history: pt with improvement in sx and to have pic today Exam Vital signs and Labs for Last 24 Hours: Temp Pulse Resp BP Pulse Ox 97.7 F 83 20 121/60 99 10/28/18 08:00 10/28/18 08:00 10/28/18 08:00 10/28/18 08:00 10/28/18 08:00 Laboratory Results - last 24 hr 10/26/18 09:50: Urine Color Brown, Urine Appearance Turbid, Urine pH 6.5, Ur Specific [place] 1.025, Urine Protein 2+, Urine Glucose (UA) Negative, Urine Ketones Trace, Urine Blood 3+, Urine Nitrate Positive, Urine Bilirubin Negative, Urine Urobilinogen 1.0, Ur Leukocyte Esterase 2+ A, Urine RBC Tntc, Urine WBC Tntc, Ur Squamous Epith Cells 5-10, Urine Bacteria 4+ 10/27/18 09:07: WBC 8.7, RBC 3.83 L, Hgb 10.5 L, Hct 33.1 L, MCV 86.4, MCH 27.3, MCHC 31.6 L, RDW 15.7, Plt Count 135 L, MPV 7.6, Neut % (Auto) 83.8 H, Lymph % (Auto) 10.3, [place] % (Auto) 5.4, Eos % (Auto) 0.2, Baso % (Auto) 0.3, Neut # (Auto) 7.3, Lymph # (Auto) 0.9, [place] # (Auto) 0.5, Eos # (Auto) 0.0, Baso # (Auto) 0.0 10/27/18 09:07: Sodium 140, Potassium 3.4 L, Chloride 105, Carbon Dioxide 23, Anion Gap 15.4 H, BUN 31 H, Creatinine 1.35 H, Estimated Creat Clear 52, Estimated GFR 38 L, Est GFR ( Amer) 47 L, Glucose 131 H, Calcium 8.5, Total Bilirubin 0.4, AST 33, ALT 12, Alkaline Phosphatase 79, Total Protein 6.8, Albumin 2.3 L, Globulin 4.5 H, Albumin/Globulin Ratio 0.5 L 10/28/18 05:51: WBC 8.1, RBC 3.68 L, Hgb 10.0 L, Hct 31.5 L, MCV 85.7, MCH 27.2, MCHC 31.7 L, RDW 15.5, Plt Count 112 L, MPV 8.4, Neut % (Auto) 72.9, Lymph % (Auto) 15.9, [place] % (Auto) 10.4 H, Eos % (Auto) 0.3, Baso % (Auto) 0.3, Neut # (Auto) 5.9, Lymph # (Auto) 1.3, [place] # (Auto) 0.9, Eos # (Auto) 0.0, Baso # (Auto) 0.0 10/28/18 05:51: Sodium 142, Potassium 3.1 L, Chloride 108 H, Carbon Dioxide 23, Anion Gap 14.1, BUN 27 H, Creatinine 0.83 D, Estimated Creat Clear 71, Estimated GFR 67, Est GFR ( Amer) 82 D, Glucose 113 H, Calcium 8.2 L I & O for Last 24 hours: Intake & Output 10/25/18 10/26/18 10/27/18 10/28/18 11:59 11:59 11:59 11:59 Intake Total 240 / 240 2006 Output Total 800 / 800 1000 / 1000 Balance -560 / -560 1007 / 1007 Weight 197 lb 4 oz 197 lb 4 oz Microbiology Reports for the Last 24 Hours: Microbiology 10/26/18 09:50 Blood Blood Culture - Preliminary Gram Positive Cocci 10/26/18 09:50 Blood Blood Culture - Preliminary Gram Positive Cocci 10/26/18 09:50 Urine,Clean Catch Urine Culture - Preliminary Gram Negative Rods - Constitutional no acute distress, obese - *Routine HEENT Exam Head: Present: normocephalic Eye: Present: EOMI, PERRL ENT: Present: mucous membranes dry - *Routine Neck Exam Absent: JVD - *Routine Respiratory Exam Present: decreased breath sounds - *Routine Cardiovascular Exam Present: RRR, murmur, S4 - *Routine Abdominal Exam Present: soft - *Routine Extremities Exam Comments: chronic changes - *Routine Skin Exam Present: intact - *Routine Neurological Exam Present: alert, CN II-XII intact - Routine Psychiatric Exam Present: normal affect Assessment and Plan (1) UTI (urinary tract infection) Current visit: Yes Status: Acute Qualifiers: Urinary tract infection type: site unspecified Hematuria presence: without hematuria Qualified Code(s): N39.0 - Urinary tract infection, site not specified Category: Medical Code(s): N39.0 - Urinary tract infection, site not specified (2) Renal insufficiency Current visit: Yes Status: Acute Category: Medical Code(s): N28.9 - Disorder of kidney and ureter, unspecified
[2018-10-29 08:41] LABS: Basophils % 0.3 % (0.1-2.0); Eosinophils # 0.1 K/mm3 (0.0-0.4); Eosinophils % 0.7 % (0.1-12.0); Hematocrit 32.1 % (37.0-47.0); Hemoglobin 10.2 g/dL (12.2-16.2); Lymphocytes # 1.5 K/mm3 (0.7-4.5); Lymphocytes % 18.1 % (10-50); Mean Corpuscular HGB Conc 31.9 g/dL (31.8-35.4); Mean Corpuscular Hemoglobin 27.2 pg (27.0-31.2); Mean Corpuscular Volume 85.3 fl (81-99); Mean Platelet Volume 7.8 fl (7.4-10.4); Monocytes # 0.7 K/mm3 (0.1-1.0); Monocytes % 8.6 % (1.7-9.3); Neutrophils % 72.4 % (37.0-80.0); Platelet Count 137 K/mm3 (142-424); Red Blood Count 3.76 M/mm3 (4.20-5.40); Red Cell Distribution Width 15.6 % (11.5-17.5); White Blood Count 8.3 K/mm3 (4.8-10.8)
[2018-10-29 08:52] LABS: Anion Gap 14.6 mEq/L (5-15); Calcium 7.9 mg/dL (8.5-10.1)
[2018-10-29 08:54] LABS: Potassium 2.6 mmoL/L (3.5-5.1)
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
--- NOTE | 2018-10-29 14:02 | Consult Report ---
*Admission Date: 10/26/18 *Chief complaint: Abdominal pain *History of present illness: Patient is a 73-year-old white female with history of neurogenic bladder status post a suprapubic tube by urologist Dr. [place] the [place] a [place] ago by report. She is worried now for some leaking around her suprapubic site. The suprapubic catheter is draining melissa urine. Patient has seen Dr. Tony Valdez here at [facility] last month and has had recurrent urinary tract infections and was thought to have a possible bladder stone on CT scan but cystoscopy did not show any bladder stones. Current culture is pending but there are 60-70,000 gram-negative rods present. Urine culture on September 22 showed E. coli with some resistance to antibiotics and they urine culture in August showed Citrobacter with multiple antibiotic resistance as well. Patient is currently not on any anticholinergic therapy. Her main complaint is pain all over. [facility] History Medical History: Reports:: Congestive Heart Failure, Depression, Hyperlipidemia, Peripheral Vascular Disease Other Surgeries: Yes: Cholecystectomy - *Social History Smoking Status: Unknown if ever smoked Alcohol Intake: never Occupational Status: disabled Housing: care home Household Members: other - Psychiatric History Expresses thoughts of harming self/others: None Suicide Plan Description: No Plan Pschychiatric History:: Reports:: Depression *Family Hx:: Coronary Artery Disease, Cancer Review of Systems - *Neurologic Denies confusion, Denies dizziness, Denies headache(s) Meds Home Medications Medication Instructions Recorded Confirmed Type acetaminophen 500 mg tablet 500 mg PO Q6H PRN 05/12/18 10/26/18 History aluminum hydrox-magnesium carb 95 30 ml PO TID PRN ml 05/12/18 10/26/18 History mg-358 mg/15 mL oral suspension atorvastatin 40 mg tablet 40 mg PO HS tab 05/12/18 10/26/18 History bisacodyl 10 mg rectal suppository 10 mg [place] DAILY PRN each 05/12/18 10/26/18 History hydrocodone 7.5 mg-acetaminophen 1 tab PO Q4H 05/12/18 10/26/18 History 325 mg tablet lactulose 10 gram/15 mL oral 20 g PO DAILY PRN ml 05/12/18 10/26/18 History solution multivitamin with minerals capsule 1 cap PO DAILY cap 05/12/18 10/26/18 History rivaroxaban 20 mg tablet 20 mg PO 1700 tab 05/12/18 10/26/18 History mirtazapine 30 mg tablet 15 mg PO HS tab 06/15/18 10/26/18 History Ascorbic Acid [Vitamin C] 1,000 mg PO DAILY 10/26/18 10/26/18 History Cranberry 400 mg PO DAILY 10/26/18 10/26/18 History Ipratropium/Albuterol Sulfate 3 ml IH Q4HP PRN 10/26/18 10/26/18 History [Duoneb 3mL neb] Ondansetron [Zofran 4mg ODT] 4 mg PO Q4HP PRN 10/26/18 10/26/18 History Propylene Glycol [Systane Complete] 1 drop OU TID 10/26/18 10/26/18 History Sennosides/Docusate Sodium 2 each PO BID 10/26/18 10/26/18 History [Senna-Docusate Sodium Tablet] Allergies Allergy/AdvReac Type Severity Reaction Status Date / Time Sulfa (Sulfonamide Allergy Unknown Verified 09/22/18 13:02 Antibiotics) Exam Vital signs and Labs for Last 24 Hours: Temp Pulse Resp BP Pulse Ox 98.2 F 77 16 141/75 H 99 10/29/18 07:41 10/29/18 07:41 10/29/18 07:41 10/29/18 07:41 10/29/18 08:09 Laboratory Results - last 24 hr 10/26/18 09:50: Urine Color Brown, Urine Appearance Turbid, Urine pH 6.5, Ur Specific [place] 1.025, Urine Protein 2+, Urine Glucose (UA) Negative, Urine Ketones Trace, Urine Blood 3+, Urine Nitrate Positive, Urine Bilirubin Negative, Urine Urobilinogen 1.0, Ur Leukocyte Esterase 2+ A, Urine RBC Tntc, Urine WBC T ntc, Ur Squamous Epith Cells 5-10, Urine Bacteria 4+ 10/29/18 08:25: WBC 8.3, RBC 3.76 L, Hgb 10.2 L, Hct 32.1 L, MCV 85.3, MCH 27.2, MCHC 31.9, RDW 15.6, Plt Count 137 L, MPV 7.8, Neut % (Auto) 72.4, Lymph % (Auto) 18.1, [place] % (Auto) 8.6, Eos % (Auto) 0.7, Baso % (Auto) 0.3, Neut # (Auto) 6.0, Lymph # (Auto) 1.5, [place] # (Auto) 0.7, Eos # (Auto) 0.1, Baso # (Auto) 0.0 10/29/18 08:25: Sodium 142, Potassium 2.6 L*, Chloride 107, Carbon Dioxide 23, Anion Gap 14.6, BUN 17 D, Creatinine 0.62 D, Estimated Creat Clear 71, Estimated GFR 94, Est GFR ( Amer) 114 D, Glucose 110 H, Calcium 7.9 L 10/29/18 10:00: Vancomycin Trough 10.1 I & O for Last 24 hours: Intake & Output 10/26/18 10/27/18 10/28/18 10/29/18 23:59 23:59 23:59 23:59 Intake Total 120 / 120 522 / 522 1615 / 1615 1438 / 1438 Output Total 350 / 350 850 / 850 1050 / 1050 300 / 300 Balance -230 / -230 -328 / -328 565 / 565 1138 / 1138 Weight 89.471 kg 89.471 kg 89.471 kg 89.953 kg Microbiology Reports for the Last 24 Hours: Microbiology 10/26/18 09:50 Blood Blood Culture - Preliminary Staphylococcus aureus Gram Positive Cocci Gram Positive Cocci#2 10/26/18 09:50 Blood Blood Culture - Preliminary Staphylococcus aureus Gram Positive Cocci 10/26/18 09:50 Urine,Clean Catch Urine Culture - Final Proteus mirabilis Narrative: Well-nourished white female in some mild discomfort by report Neck supple symmetric Abdomen soft, nondistended. Suprapubic catheter is draining well and the insertion site shows no evidence of erythema or tenderness. Normal respiratory effort Alert and oriented x3 Internal Medicine - CN: Reslt - Labs CBC & Chem 7: 10/29/18 08:25 10/29/18 08:25 Labs: Short CBC 10/29/18 Range/Units 08:25 WBC 8.3 (4.8-10.8) K/mm3 Hgb 10.2 L (12.2-16.2) g/dL Hct 32.1 L (37.0-47.0) % Plt Count 137 L (142-424) K/mm3 BMP 10/29/18 08:25 Sodium 142 Potassium 2.6 L* Chloride 107 Carbon Dioxide 23 BUN 17 D Creatinine 0.62 D Glucose 110 H Calcium 7.9 L Urine 10/26/18 Range/Units 09:50 Urine Color Brown (Yellow) Urine Appearance Turbid (Clear) Urine pH 6.5 (5.0-8.5) Ur Specific [place] 1.025 (1.005-1.030) Urine Protein 2+ (Negative) Urine Glucose (UA) Negative (Negative) Assessment and Plan (1) UTI (urinary tract infection) Current visit: Yes Status: Acute Qualifiers: Urinary tract infection type: site unspecified Hematuria presence: without hematuria Qualified Code(s): N39.0 - Urinary tract infection, site not specified Category: Medical Code(s): N39.0 - Urinary tract infection, site not specified (2) Renal insufficiency Current visit: Yes Status: Acute Category: Medical Code(s): N28.9 - Disorder of kidney and ureter, unspecified - Assessment and plan all Dx Assessment and Plan for all problems:: 72-year-old white female with some urinary leakage around her suprapubic c atheter. This is most likely due to bladder spasm due to underlying bladder infection. Replacing a larger catheter or putting more fluid in the balloon does not help this matter. I recommend oxybutynin daily to help with bladder spasms and making sure that her urinary tract infection is treated a ppropriately. Catheter is draining and appears to be in the correct position.
[2018-10-30 06:55] LABS: Basophils # 0.1 K/mm3 (0-0.2); Basophils % 0.9 % (0.1-2.0); Eosinophils # 0.1 K/mm3 (0.0-0.4); Eosinophils % 1.5 % (0.1-12.0); Hematocrit 31.8 % (37.0-47.0); Hemoglobin 9.9 g/dL (12.2-16.2); Lymphocytes # 2.3 K/mm3 (0.7-4.5); Lymphocytes % 25.5 % (10-50); Mean Corpuscular HGB Conc 31.2 g/dL (31.8-35.4); Mean Corpuscular Hemoglobin 26.7 pg (27.0-31.2); Mean Corpuscular Volume 85.6 fl (81-99); Mean Platelet Volume 8.1 fl (7.4-10.4); Monocytes # 0.8 K/mm3 (0.1-1.0); Monocytes % 8.4 % (1.7-9.3); Neutrophils # 5.8 K/mm3 (1.8-7.8); Neutrophils % 63.7 % (37.0-80.0); Platelet Count 172 K/mm3 (142-424); Red Blood Count 3.71 M/mm3 (4.20-5.40); Red Cell Distribution Width 15.6 % (11.5-17.5); White Blood Count 9.1 K/mm3 (4.8-10.8)
[2018-10-30 07:03] LABS: Anion Gap 14.4 mEq/L (5-15); Calcium 7.7 mg/dL (8.5-10.1)
[2018-10-30 07:13] LABS: Potassium 2.4 mmoL/L (3.5-5.1)
--- NOTE | 2018-10-30 07:53 | Discharge Summary ---
General - General Admission date:: 10/26/18 Discharge date: 10/30/18 HPI HPI: this elderly wf was seen in the ed -O FEVER, ALTERED MENTAL STATUS AND HYPOXIA pt was at [facility] and had dec loc and had recent uti - e coli - no vomiting - pt with not feeling well Hospital Course Hospital Course: pt was admitted and started on abx and has slowly did better she did dev staph aureus and enterococcus faecalis bactermia and has proteus mirablis in urine with suprapubic cather = she was seen by urology - t is a 73-year-old white female with history of neurogenic bladder status post a suprapubic tube by urologist Dr. Knight in the [place] area a year ago by report. She is worried now for some leaking around her suprapubic site. The suprapubic catheter is draining melissa urine. Patient has seen Dr. Tony Valdez here at [facility] last month and has had recurrent urinary tract infections and was thought to have a possible bladder stone on CT scan but cystoscopy did not show any bladder stones. Current culture is pending but there are 60-70,000 gram-negative rods present. Urine culture on September 22 showed E. coli with some resistance to antibiotics and they urine culture in August showed Citrobacter with multiple antibiotic resistance as well. Patient is currently not on any anticholinergic therapy. Her main complaint is pain all over. 2-year-old white female with some urinary leakage around her suprapubic catheter. This is most likely due to bladder spasm due to underlying bladder infection. Replacing a larger catheter or putting more fluid in the balloon does not help this matter. I recommend oxybutynin daily to help with bladder spasms and making sure that her urinary tract infection is treated appropriately. Catheter is draining and appears to be in the correct position. pt was discussed with phar and will need iv abx given at this time for about 9 days - no diarrhea reported but has low potassium - pt was arranged to go to [facility] - pt without chest pain Objective Vital signs: Temp Pulse Resp BP Pulse Ox 98.3 F 81 17 132/77 93 L 10/30/18 04:00 10/30/18 04:00 10/30/18 04:00 10/30/18 04:00 10/30/18 04:00 no acute distress, obese - *Routine HEENT Exam Head: Present: normocephalic, atraumatic Eye: Present: EOMI, PERRL ENT: Present: mucous membranes dry - *Routine Neck Exam Present: supple - *Routine Respiratory Exam Present: decreased breath sounds - *Routine Cardiovascular Exam Present: RRR, murmur - *Routine Abdominal Exam Present: soft - *Routine Extremities Exam Comments: chronic edema and chronic reddness - *Routine Skin Exam Present: intact - *Routine Neurological Exam Present: alert, CN II-XII intact has inability to ambulate and lays in bed at all times - no new focal changes - Routine Psychiatric Exam Present: unable to assess Results Labs on day of discharge: Labs from last 24 hours 10/30/18 10/30/18 10/29/18 06:14 06:14 10:00 WBC 9.1 RBC 3.71 L Hgb 9.9 L Hct 31.8 L MCV 85.6 MCH 26.7 L MCHC 31.2 L RDW 15.6 Plt Count 172 D MPV 8.1 Neut % (Auto) 63.7 Lymph % (Auto) 25.5 [place] % (Auto) 8.4 Eos % (Auto) 1.5 Baso % (Auto) 0.9 Neut # (Auto) 5.8 Lymph # (Auto) 2.3 [place] # (Auto) 0.8 Eos # (Auto) 0.1 Baso # (Auto) 0.1 Sodium 141 Potassium 2.4 L* Chloride 106 Carbon Dioxide 23 Anion Gap 14.4 BUN 12 D Creatinine 0.56 Estimated Creat Clear 72 Estimated GFR 106 Est GFR ( Amer) 128 Glucose 96 Calcium 7.7 L Vancomycin Trough 10.1 10/29/18 10/29/18 08:25 08:25 WBC 8.3 RBC 3.76 L Hgb 10.2 L Hct 32.1 L MCV 85.3 MCH 27.2 MCHC 31.9 RDW 15.6 Plt Count 137 L MPV 7.8 Neut % (Auto) 72.4 Lymph % (Auto) 18.1 [place] % (Auto) 8.6 Eos % (Auto) 0.7 Baso % (Auto) 0.3 Neut # (Auto) 6.0 Lymph # (Auto) 1.5 [place] # (Auto) 0.7 Eos # (Auto) 0.1 Baso # (Auto) 0.0 Sodium 142 Potassium 2.6 L* Chloride 107 Carbon Dioxide 23 Anion Gap 14.6 BUN 17 D Creatinine 0.62 D Estimated Creat Clear 71 Estimated GFR 94 Est GFR ( Amer) 114 D Glucose 110 H Calcium 7.9 L Vancomycin Trough Preliminary micro results at discharge 10/26/18 09:50 Blood Culture - Preliminary Blood Staphylococcus aureus Staphylococcus aureus#2 Enterococcus faecalis DS: Diagnosis - Discharge Diagnosis (1) UTI (urinary tract infection) Status: Acute (2) Renal insufficiency Status: Acute (3) Obesity (BMI 30.0-34.9) Status: Acute (4) Proteus mirabilis infection Status: Acute (5) Staphylococcus aureus bacteremia Status: Acute (6) Enterococcus faecalis infection Status: Acute (7) Bacteremia due to Enterococcus Status: Acute (8) Staphylococcus aureus, vancomycin-resistant Status: Acute (9) Hypokalemia Status: Acute (10) Suprapubic catheter Status: Acute (11) Cognitive communication deficit Status: Acute (12) Functional quadriplegia Status: Acute Discharge Plan - Patient Discharge Instructions ACTIVITY: Continue current activity DIET: continue same diet Patient Instructions: Kidney Failure, Neurogenic Bladder -- Adult, DI for Urinary Tract Infection (UTI), DI for Multiple Drug-resistant Organism (MDRO) Infection - Follow up Plan Disposition: [facility] Home Medications: Home Medications Medication Instructions Recorded Confirmed Type acetaminophen 500 mg tablet 500 mg PO Q6H PRN 05/12/18 10/26/18 History aluminum hydrox-magnesium carb 95 30 ml PO TID PRN ml 05/12/18 10/26/18 History mg-358 mg/15 mL oral suspension atorvastatin 40 mg tablet 40 mg PO HS tab 05/12/18 10/26/18 History bisacodyl 10 mg rectal suppository 10 mg MO DAILY PRN each 05/12/18 10/26/18 History hydrocodone 7.5 mg-acetaminophen 1 tab PO Q4H 05/12/18 10/26/18 History 325 mg tablet lactulose 10 gram/15 mL oral 20 g PO DAILY PRN ml 05/12/18 10/26/18 History solution multivitamin with minerals capsule 1 cap PO DAILY cap 05/12/18 10/26/18 History rivaroxaban 20 mg tablet 20 mg PO 1700 tab 05/12/18 10/26/18 History mirtazapine 30 mg tablet 15 mg PO HS tab 06/15/18 10/26/18 History Ascorbic Acid [Vitamin C] 1,000 mg PO DAILY 10/26/18 10/26/18 History Cranberry 400 mg PO DAILY 10/26/18 10/26/18 History Ipratropium/Albuterol Sulfate 3 ml IH Q4HP PRN 10/26/18 10/26/18 History [Duoneb 3mL neb] Ondansetron [Zofran 4mg ODT] 4 mg PO Q4HP PRN 10/26/18 10/26/18 History Propylene Glycol [Systane Complete] 1 drop OU TID 10/26/18 10/26/18 History Sennosides/Docusate Sodium 2 each PO BID 10/26/18 10/26/18 History [Senna-Docusate Sodium Tablet] Prescriptions/Medication Reconciliation: New Linezolid [Zyvox 600mg/300mL Premix Bag] 600 mg IV Q12H 9 Days #18 iv.soln Meropenem [Meropenem 1GM Vial] 1 gm IV Q8H 9 Days #27 vial Oxybutynin Chloride [Ditropan 5mg tablet] 5 mg PO BID tablet Continue aluminum hydrox-magnesium carb 95 mg-358 mg/15 mL oral suspension 30 ml PO TID PRN ml PRN Reason: GERD bisacodyl 10 mg rectal suppository 10 mg MO DAILY PRN each PRN Reason: constipation atorvastatin 40 mg tablet 40 mg PO HS tab hydrocodone 7.5 mg-acetaminophen 325 mg tablet 1 tab PO Q4H multivitamin with minerals capsule 1 cap PO DAILY cap acetaminophen 500 mg tablet 500 mg PO Q6H PRN PRN Reason: PAIN lactulose 10 gram/15 mL oral solution 20 g PO DAILY PRN ml PRN Reason: constipation rivaroxaban 20 mg tablet 20 mg PO 1700 tab mirtazapine 30 mg tablet 15 mg PO HS tab Ondansetron [Zofran 4mg ODT] 4 mg PO Q4HP PRN PRN Reason: Nausea Cranberry 400 mg PO DAILY Propylene Glycol [Systane Complete] 1 drop OU TID Ascorbic Acid [Vitamin C] 1,000 mg PO DAILY Ipratropium/Albuterol Sulfate [Duoneb 3mL neb] 3 ml IH Q4HP PRN PRN Reason: Shortness Of Breath Sennosides/Docusate Sodium [Senna-Docusate Sodium Tablet] 2 each PO BID
[2018-10-30 08:01] VITALS: BP 134/73
== END 2018-10-30 10:19 ==
LOC: ER 09:30 → 2ND 10:56
PROVIDERS: ADMIT Emergency Medicine; ATTEND Emergency Medicine